=== PATIENT | male | born 1980 ===

== ENCOUNTER 2021-07-12 16:53 | Emergency (ER) | payer BC ==
[~2021-07-12] VITALS: Ht 177.8 cm; Wt 115.7 kg
[2021-07-12 19:52] VITALS: BP 116/74
== END 2021-07-12 20:40 | disposition home or self-care (01) ==
LOC: ER 16:53
DX: S91.115A Laceration without foreign body of left lesser toe(s) without damage to nail, initial encounter (principal); R51.9 Headache, unspecified; R07.89 Other chest pain; E66.9 Obesity, unspecified; Z68.36 Body mass index [BMI] 36.0-36.9, adult; X50.1XXA Overexertion from prolonged static or awkward postures, initial encounter; Y93.89 Activity, other specified; Y92.89 Other specified places as the place of occurrence of the external cause; Y99.8 Other external cause status
CPT/HCPCS: 12001; 70450; 73630; 93005